=== PATIENT | female | born 1955 | race Caucasian/White ===

== ENCOUNTER → 2017-04-02 | Outpatient (CLI) | payer BC ==
--- NOTE | 2017-04-02 09:24 | CT ---
EXAMINATION TYPE: CT chest wo con DATE OF EXAM: 04/02/2017 COMPARISON: NONE HISTORY: Cough CT DLP: 470 mGycm. Automated Exposure Control for Dose Reduction was Utilized. TECHNIQUE: CT scan of the thorax is performed without IV contrast. FINDINGS: There is apical scarring present bilaterally. The lungs are otherwise clear. The major bron chi are patent. No significant axillary, internal mammary or hilar adenopathy. There are some shotty mediastinal and aortopulmonary window adenopathy. There is no pleural fluid. There is a small 5.7 mm pericardial effusion There is a 15.3 mm low attenuating lesion in the posterior segment of the right lobe of the liver. Th is does not meet the requirements of simple cyst. The remainder of the visualized upper abdomen is un remarkable. There is minimal hypertrophic spondylosis within the dorsal spine. IMPRESSION: 1. SMALL PERICARDIAL EFFUSION. 2. LOW ATTENUATING LESION WITHIN THE RIGHT LOBE OF THE LIVER DOES NOT MEET THE REQUIREMENTS OF SIMPLE CYST. HEPATIC ULTRASOUND WOULD BE SUGGESTED. 3. MINIMAL DEGENERATIVE CHANGE WITHIN THE SPINE.
== END | disposition home or self-care (01) ==
LOC: RADCTMAIN 08:25
PROVIDERS: ATTEND Family Medicine
DX: I31.3 Pericardial effusion (noninflammatory) (principal); R05 Cough
CPT/HCPCS: 71250

== ENCOUNTER → 2017-05-04 | Outpatient (CLI) | payer BC ==
--- NOTE | 2017-05-04 08:28 | US ---
EXAMINATION TYPE: US liver DATE OF EXAM: 05/04/2017 COMPARISON: CT scan of the chest dated 04/02/2017. CLINICAL HISTORY: K76.[address] Patient states CT showed possible liver cyst. NPO. EXAM MEASUREMENTS: Liver Length: 14.4 cm Gallbladder Wall: 0.2 cm CBD: 0.6 cm CHD: 0.6 cm Right Kidney: 11.2 x 5.7 x 4.6 cm Pancreas: Head and tail not well seen due to overlying bowel gas. Appears echogenic. Liver: Right posterior cystic lesion - 1.1 x 1.2 x 1.1 cm Gallbladder: wnl, fold seen Evidence for sonographic Zimmerman's sign: neg CBD: wnl CHD: wnl Right Kidney: medial anechoic lesion at hilum = 2.7 x 1.3 cm Limited views of the pancreas are unremarkable. The liver is normal in size without biliary dilatation. There is a 1.1 x 1.2 x 1.1 cm hypoechoic lesi on in the posterior segment of the right lobe of the liver. This does not meet the requirements of a simple cyst. The gallbladder is normal. The gallbladder wall measures 2 mm. The distal common hepatic duct measure s 6 mm. There is an extrarenal pelvis on the right. IMPRESSION: 1. HYPOECHOIC LESION WITHIN THE POSTERIOR SEGMENT RIGHT LOBE OF THE LIVER DOES NOT MEET THE REQUIREME NTS OF SIMPLE CYST. LIVER MRI WOULD BE SUGGESTED. 2. CYSTIC LESION IN THE MEDIAL ASPECT OF THE HILUM OF THE RIGHT KIDNEY REPRESENTS AN EXTRARENAL PELVI S.
== END | disposition home or self-care (01) ==
LOC: RADUSWWP 07:05
PROVIDERS: ATTEND Family Medicine
DX: K76.89 Other specified diseases of liver (principal)
CPT/HCPCS: 76705

== ENCOUNTER → 2017-12-10 | Outpatient (CLI) | payer BC ==
--- NOTE | 2017-12-11 16:12 | MR ---
EXAMINATION TYPE: MR liver wo/w con DATE OF EXAM: 12/10/2017 COMPARISON: Ultrasound liver May 04, 2017. CT chest April 02, 2017. HISTORY: Abnormal U/S, Liver mass CONTRAST: Standard multiplanar, multisequence MRI departmental protocol utilizing 9 mL intravenous Gadavist nancy olinium contrast. FINDINGS: Liver: Liver is normal in size. Corresponding to area of concern on ultrasound posterior aspect right hepatic dome there is oval well-circumscribed 1.3 x 0.9 cm lesion of T1 hypointensity and T2 hyperin tensity without postcontrast enhancement consistent with simple appearing thin-walled cyst. There are 4 additional subcentimeter simple appearing cysts suspected right hepatic lobe seen best series 601 images 25, 24, 22, and 19. No worrisome solid or cystic mass is identified. No ductal dilatation is seen. Gallbladder is unremarkable. Other: Visualized lung bases are clear. The spleen, pancreas, and both adrenal glands are normal in size and felt unremarkable. There are a few scattered simple-appearing cysts seen throughout both kid neys. No hydronephrosis is evident bilaterally. There is no suspicious bowel dilatation. There is no concerning abdominal fluid collection or adenopathy. IMPRESSION: Several thin-walled simple appearing small cysts throughout the liver. No worrisome intrahepatic mass identified.
== END | disposition home or self-care (01) ==
LOC: RADMRIMAIN 06:00
PROVIDERS: ATTEND Surgery
DX: K76.89 Other specified diseases of liver (principal)
CPT/HCPCS: 82565; 74183; 36415; A9581

== ENCOUNTER → 2018-09-01 | Outpatient (CLI) | payer BC ==
--- NOTE | 2018-09-02 14:36 | MM ---
Reason for exam: screening (asymptomatic). Last mammogram was performed 1 year and 1 month ago. History: Patient is postmenopausal. Benign excisional biopsy of the left breast, January 2010. Benign US left guided VAD of the left breast, December 23, 2009. Physical Findings: A clinical breast exam by your physician is recommended on an annual basis and results should be correlated with mammographic findings. MG 3D Screening Mammo W/Cad Bilateral CC and MLO view(s) were taken. Prior study comparison: August 09, 2017, bilateral MG screening mammo w CAD. August 07, 2016, bilateral MG 3d screening mammo w/cad. The breast tissue is heterogeneously dense. This may lower the sensitivity of mammography. There are benign appearing round calcifications bilaterally. There is no discrete abnormality. ASSESSMENT: Benign, BI-RAD 2 RECOMMENDATION: Routine screening mammogram of both breasts in 1 year.
== END ==
LOC: RADMAMWWP 09:31
PROVIDERS: ATTEND Family Medicine
DX: Z12.31 Encounter for screening mammogram for malignant neoplasm of breast (principal)
CPT/HCPCS: 77063; 77067

== ENCOUNTER → 2019-09-22 | Outpatient (CLI) | payer BC ==
--- NOTE | 2019-09-25 09:44 | MM ---
Reason for exam: screening (asymptomatic). Last mammogram was performed 1 year and 1 month ago. History: Patient is postmenopausal. Benign excisional biopsy of the left breast, January 2010. Benign US left guided VAD of the left breast, December 23, 2009. Physical Findings: A clinical breast exam by your physician is recommended on an annual basis and results should be correlated with mammographic findings. MG 3D Screening Mammo W/Cad Bilateral CC and MLO view(s) were taken. Prior study comparison: September 01, 2018, bilateral MG 3d screening mammo w/cad. August 09, 2017, bilateral MG screening mammo w CAD. There are scattered fibroglandular densities. There is no discrete abnormality. No significant changes when compared with prior studies. ASSESSMENT: Negative, BI-RAD 1 RECOMMENDATION: Routine screening mammogram of both breasts in 1 year.
== END | disposition home or self-care (01) ==
LOC: RADMAMWWP 07:38
PROVIDERS: ATTEND Family Medicine
DX: Z12.31 Encounter for screening mammogram for malignant neoplasm of breast (principal)
CPT/HCPCS: 77063; 77067

== ENCOUNTER 2022-06-20 18:11 | Emergency (ER) | payer MEDICARE ==
--- NOTE | 2022-06-20 18:24 | ED ---
Alcohol HPI - General Stated Complaint: ETOH Time Seen by Provider: 06/20/22 18:11 Source: patient, EMS, RN notes reviewed, old records reviewed Mode of arrival: EMS - History of Present Illness Initial Comments: 67-year-old female brought in by EMS for evaluation of alcohol intoxication patient to [facility] which was nauseated concern for aspiration by paramedics. Currently she be going through issues at home her daughter apparently will not let her see the granddaughter anymore. Unclear how long the patient's been using alcohol. No reports of any trauma or pain. Patient denies any pain no cough MD Complaint: alcohol intoxication - Related Data Allergies Allergy/AdvReac Type Severity Reaction Status Date / Time No Known Allergies Allergy Verified 06/20/22 18:30 Review of Systems ROS Statement: Those systems with pertinent positive or pertinent negative responses have been documented in the HPI. ROS Other: All systems not noted in ROS Statement are negative. General Exam - General Exam Comments Initial Comments: This a well-developed well-nourished awake lethargic female with assault alcohol conjoiners on her breath and she does appear intoxicated General appearance: alert, lethargic Head exam: Present: atraumatic, normocephalic, normal inspection Eye exam: Present: normal appearance, PERRL, EOMI. Absent: scleral icterus, conjunctival injection, periorbital swelling ENT exam: Present: normal exam, mucous membranes moist Neck exam: Present: normal inspection. Absent: tenderness, meningismus, lymphadenopathy Respiratory exam: Present: normal lung sounds bilaterally. Absent: respiratory distress, wheezes, rales, rhonchi, stridor Cardiovascular Exam: Present: regular rate, normal rhythm, normal heart sounds. Absent: systolic murmur, diastolic murmur, rubs, gallop, clicks GI/Abdominal exam: Present: soft, normal bowel sounds. Absent: distended, tenderness, guarding, rebound, rigid Extremities exam: Present: normal inspection, full ROM, normal capillary refill. Absent: tenderness, pedal edema, joint swelling, calf tenderness Back exam: Present: normal inspection Neurological exam: Present: alert, oriented X3, CN II-XII intact Psychiatric exam: Present: normal affect, normal mood Skin exam: Present: warm, dry, intact, normal color. Absent: rash Course Vital Signs 06/20/22 06/20/22 18:27 19:45 Temperature 97.8 F Pulse Rate 65 72 Respiratory 16 16 Rate Blood Pressure 127/63 106/40 O2 Sat by Pulse 98 96 Oximetry - Reevaluation(s) Reevaluation #1: 06/20/22 19:14 I did discuss the presentation with the patient's was present patient does have a history of drinking since June of last year. Medical Decision Making - Medical Decision Making I did discuss [employer] the patient's also with Dr. Baltazar covering Dr. Bauman. Patient be admitted for inpatient evaluation and treatment of alcohol intoxication potential for withdrawal dehydration and hypokalemia. Per the patient's she apparently does not drink every day but again has been drinking more so since June of this past year. - Lab Data Result diagrams: 06/20/22 18:28 06/20/22 18:28 Lab Results 06/20/22 06/20/22 06/20/22 Range/Units 18:28 18:28 18:28 WBC 6.2 (3.8-10.6) k/uL RBC 4.59 (3.80-5.40) m/uL Hgb 14.2 (11.4-16.0) gm/dL Hct 42.6 (34.0-46.0) % MCV 93.0 (80.0-100.0) fL MCH 31.0 (25.0-35.0) pg MCHC 33.4 (31.0-37.0) g/dL RDW 12.1 (11.5-15.5) % Plt Count 260 (150-450) k/uL MPV 8.4 Neutrophils % 53 % Lymphocytes % 38 % Monocytes % 4 % Eosinophils % 2 % Basophils % 1 % Neutrophils # 3.3 (1.3-7.7) k/uL Lymphocytes # 2.4 (1.0-4.8) k/uL Monocytes # 0.2 (0-1.0) k/uL Eosinophils # 0.1 (0-0.7) k/uL Basophils # 0.0 (0-0.2) k/uL Sodium 144 (137-145) mmol/L Potassium 3.2 L (3.5-5.1) mmol/L Chloride 108 H (98-107) mmol/L Carbon Dioxide 24 (22-30) mmol/L Anion Gap 12 mmol/L BUN 8 (7-17) mg/dL Creatinine 0.53 (0.52-1.04) mg/dL Est GFR (CKD-EPI)AfAm >90 (>60 ml/min/1.73 sqM) Est GFR (CKD-EPI)NonAf >90 (>60 ml/min/1.73 sqM) Glucose 117 H (74-99) mg/dL Osmolality 350 H* (280-301) mosm/kg Plasma Lactic Acid Montrell 1.9 (0.7-2.0) mmol/L Calcium 9.4 (8.4-10.2) mg/dL Magnesium 2.0 (1.6-2.3) mg/dL Total Bilirubin 0.3 (0.2-1.3) mg/dL AST 26 (14-36) U/L ALT 20 (4-34) U/L Alkaline Phosphatase 79 (38-126) U/L Ammonia 16 (<30) umol/L Creatine Kinase 44 (30-135) U/L Troponin I (0.000-0.034) ng/mL Total Protein 6.7 (6.3-8.2) g/dL Albumin 4.1 (3.5-5.0) g/dL Acetaminophen <10.0 ug/mL Serum Alcohol 202 H* mg/dL 06/20/22 Range/Units 18:28 WBC (3.8-10.6) k/uL RBC (3.80-5.40) m/uL Hgb (11.4-16.0) gm/dL Hct (34.0-46.0) % MCV (80.0-100.0) fL MCH (25.0-35.0) pg MCHC (31.0-37.0) g/dL RDW (11.5-15.5) % Plt Count (150-450) k/uL MPV Neutrophils % % Lymphocytes % % Monocytes % % Eosinophils % % Basophils % % Neutrophils # (1.3-7.7) k/uL Lymphocytes # (1.0-4.8) k/uL Monocytes # (0-1.0) k/uL Eosinophils # (0-0.7) k/uL Basophils # (0-0.2) k/uL Sodium (137-145) mmol/L Potassium (3.5-5.1) mmol/L Chloride (98-107) mmol/L Carbon Dioxide (22-30) mmol/L Anion Gap mmol/L BUN (7-17) mg/dL Creatinine (0.52-1.04) mg/dL Est GFR (CKD-EPI)AfAm (>60 ml/min/1.73 sqM) Est GFR (CKD-EPI)NonAf (>60 ml/min/1.73 sqM) Glucose (74-99) mg/dL Osmolality (280-301) mosm/kg Plasma Lactic Acid Montrell (0.7-2.0) mmol/L Calcium (8.4-10.2) mg/dL Magnesium (1.6-2.3) mg/dL Total Bilirubin (0.2-1.3) mg/dL AST (14-36) U/L ALT (4-34) U/L Alkaline Phosphatase (38-126) U/L Ammonia (<30) umol/L Creatine Kinase (30-135) U/L Troponin I <0.012 (0.000-0.034) ng/mL Total Protein (6.3-8.2) g/dL Albumin (3.5-5.0) g/dL Acetaminophen ug/mL Serum Alcohol mg/dL - Radiology Data Radiology results: report reviewed (Imaging reviewed as well as report no acute processes seen at this time. No evidence of aspiration.), image reviewed Disposition Clinical Impression: Alcoholic intoxication, Alcohol withdrawal syndrome, Hypokalemia, Nausea & vomiting, Dehydration Disposition: ADMITTED IP TO THIS [facility] Condition: Fair Referrals: Nicolas Bauman MD [Primary Care Provider] - 1-2 days Decision Date: 06/20/22 Decision Time: 20:00
[2022-06-20] MEDS ORDERED: SODIUM CHLORIDE 0.9% 1,000 ML IV STA (18:26)
[2022-06-20 18:29] VITALS: RESP 16; TEMP 97.8
[2022-06-20 18:39] LABS: Basophils % (A) 1 %; Eosinophils # (A) 0.1 k/uL (0-0.7); Eosinophils % (A) 2 %; HCT 42.6 % (34.0-46.0); HGB 14.2 gm/dL (11.4-16.0); Lymphocytes # (A) 2.4 k/uL (1.0-4.8); Lymphocytes % (A) 38 %; MCHC 33.4 g/dL (31.0-37.0); Mean Platelet Volume 8.4; Monocytes # (A) 0.2 k/uL (0-1.0); Monocytes % (A) 4 %; Neutrophils # (A) 3.3 k/uL (1.3-7.7); Neutrophils % (A) 53 %; Platelet Count 260 k/uL (150-450); RBC 4.59 m/uL (3.80-5.40); RDW 12.1 % (11.5-15.5); WBC 6.2 k/uL (3.8-10.6)
[2022-06-20] MEDS ORDERED: ONDANSETRON 4 MG/2 ML VIAL IVP STA (18:40)
[2022-06-20 18:47] LABS: Lactic Acid, Venous 1.9 mmol/L (0.7-2.0)
[2022-06-20 18:52] LABS: ALT 20 U/L (4-34); AST 26 U/L (14-36); Acetaminophen <10.0 ug/mL; African American GFR (CKD) >90 (>60 ml/min/1.73 sqM); Albumin 4.1 g/dL (3.5-5.0); Alkaline Phosphatase 79 U/L (38-126); Anion Gap 12 mmol/L; Blood Urea Nitrogen 8 mg/dL (7-17); Calcium 9.4 mg/dL (8.4-10.2); Carbon Dioxide 24 mmol/L (22-30); Chloride 108 mmol/L (98-107); Creatine Kinase 44 U/L (30-135); Glucose 117 mg/dL (74-99); Non-African American GFR(CKD) >90 (>60 ml/min/1.73 sqM); Potassium 3.2 mmol/L (3.5-5.1); Sodium 144 mmol/L (137-145); Total Bilirubin 0.3 mg/dL (0.2-1.3); Total Protein 6.7 g/dL (6.3-8.2)
[2022-06-20 19:22] LABS: Alcohol 202 mg/dL
--- NOTE | 2022-06-20 19:44 | XR ---
EXAMINATION TYPE: XR chest 1V portable DATE OF EXAM: 06/20/2022 6:39 PM COMPARISON: CT chest from 04/02/2017 TECHNIQUE: XR chest 1V portable . CLINICAL INDICATION:Female, 67 years old with history of Concern for aspiration; Patient is rotated. FINDINGS: Lungs/Pleura: There is no evidence of pleural effusion, focal consolidation, or pneumothorax. Pulmonary vascularity: Unremarkable. Heart/mediastinum: Cardiomediastinal silhouette is prominent in size. Musculoskeletal: No acute osseous pathology. IMPRESSION: No acute cardiopulmonary disease/process.
[2022-06-20 19:47] VITALS: BP 106/40; PULSE 72
[2022-06-20] MEDS ORDERED: POTASSIUM CHLORIDE 20 MEQ in WATER FOR INJECTION 1 100ML.BAG IVPB STA (20:21)
[2022-06-20] MEDS ORDERED: NALOXONE 0.4 MG/ML 1 ML VIAL IV PRN (20:22)
[2022-06-20] MEDS ORDERED: DEXTROSE 5%-0.45% NACL 1,000 ML IV SCH (20:30)
[2022-06-20] MEDS ORDERED: ONDANSETRON 4 MG/2 ML VIAL IVP PRN (20:30)
[2022-06-20] MEDS ORDERED: THIAMINE 100 MG/ML 2 ML VIAL IM STA (20:31)
[2022-06-20] MEDS ORDERED: LORazepam 2 MG/ML INJ IV PRN (20:31)
[2022-06-21] MEDS ORDERED: THIAMINE 100 MG TAB PO SCH (09:00)
[2022-06-21] MEDS ORDERED: PANTOPRAZOLE 40 MG/10 ML VIAL IV SCH (09:00)
== END 2022-06-20 21:21 | disposition left against medical advice (07) ==
LOC: EC 18:11 → 4SSUR 20:22 → UNDOADMIN 20:22 → 4SSUR 20:58 → EC 21:21
DX: E87.6 Hypokalemia (principal); E86.0 Dehydration; F10.139 Alcohol abuse with withdrawal, unspecified; Y90.7 Blood alcohol level of 200-239 mg/100 ml
CPT/HCPCS: 96374; 96361; 99284; 36415; 83930; 80053; 82140; 82550; 83605; 83735; 84484; 85025; 80143; 71045; G0480; J2405; 80320

== ENCOUNTER 2022-09-16 08:27 | Day surgery (SDC) | payer MEDICARE ==
[2022-09-14 09:59] VITALS: BMI 23.1
[~2022-09-16 08:27] MED LIST: LACTATED RINGERS 1,000 ML IV SCH; LIDOCAINE 1% (10MG/ML) FOR IV START INTRADERMA PRN
[2022-09-16 09:22] VITALS: TEMP 97.7
[2022-09-16] MEDS ORDERED: PROPOFOL 10 MG/ML 20 ML VIAL IV ONE (09:36)
--- NOTE | 2022-09-16 10:02 | P.PCN ---
Date of Procedure: 09/16/22 Procedure(s) Performed: BRIEF HISTORY: Patient is a 67-year-old pleasant female scheduled for an elective colonoscopy as a part of screening for colon cance/positive cologuardr. PROCEDURE PERFORMED: Colonoscopy with biopsy. PREOPERATIVE DIAGNOSIS: Screening for colon cancer/positive cologuard. IV sedation per Anesthesia. PROCEDURE: After informed consent was obtained, the patient, was brought into the endoscopy unit. IV sedation was administered by Anesthesia under continuous monitoring. Digital rectal examination was normal. Initially the Olympus CF-160 flexible video colonoscope was then inserted in the rectum, gradually advanced into the cecum without any difficulty. Careful examination was performed as the scope was gradually being withdrawn. Ileocecal valve and the appendiceal orifice were visualized and appeared normal. Prep was excellent. Mucosa of the cecum, ascending colon, transverse colon, descending colon, appeared normal. In the sigmoid colon there was a 2 mm sessile polyp removed by cold biopsy. Rest of the sigmoid colon, and rectum appeared normal. Retroflexion was performed in the rectum and no lesions were seen. The patient tolerated the procedure well. IMPRESSION: 3 mm sessile sigmoid colon polyp status post cold biopsy Rest of the colon appeared normal RECOMMENDATIONS: Findings of this examination were discussed with the patient as well as her family.. She was advised to follow with the biopsy results and have a repeat colonoscopy in 5 years based the biopsy results
[2022-09-16 10:13] VITALS: PULSE 71
[2022-09-16 10:26] VITALS: BP 142/76; RESP 20
== END 2022-09-16 10:42 | disposition home or self-care (01) ==
LOC: ORWHC2ENDO 08:27
PROVIDERS: ATTEND Internal Medicine Gastroenterology
DX: D12.5 Benign neoplasm of sigmoid colon (principal); E03.9 Hypothyroidism, unspecified; Z79.890 Hormone replacement therapy; F90.9 Attention-deficit hyperactivity disorder, unspecified type; Z79.01 Long term (current) use of anticoagulants; Z79.83 Long term (current) use of bisphosphonates; Z79.899 Other long term (current) drug therapy
CPT/HCPCS: 88305; 45380; J2704

== ENCOUNTER → 2023-01-29 | Outpatient (CLI) | payer MEDICARE ==
[2023-01-29 07:48] LABS: African American GFR (CKD) >90 (>60 ml/min/1.73 sqM); Blood Urea Nitrogen 16 mg/dL (7-17); Non-African American GFR(CKD) >90 (>60 ml/min/1.73 sqM)
--- NOTE | 2023-01-29 09:20 | CT ---
EXAMINATION TYPE: CT chest w con DATE OF EXAM: 01/29/2023 COMPARISON: 04/02/2017 HISTORY: 67 year-old female S22.20XD, Sternal fracture after injury. TECHNIQUE: Contiguous axial scanning of the chest after the administration of 100ml mL of Isovue 300. Coronal/sagittal reconstructions performed. CT DLP: 200.3mGycm. Automatic exposure control utilized for a dose reduction. FINDINGS: Heart borderline enlarged without pericardial effusion. Unclear if there are proximal LAD coronary ar beto aneurysms measuring up to 1.5 cm versus enhancing nodularity relating to low hanging left atrial appendage. Refer to axial image 35. Borderline ectatic ascending aorta 3.5 cm. Conventional arch vessel branching anatomy. No thoracic ly mphadenopathy by CT size criteria. Biapical pleural-parenchymal scarring. Stable 4 mm left apical pulmonary nodule. Mild dependent atelectasis is present. Additional strandy b ibasilar atelectasis. Some groundglass changes in the lower lungs, probably due to atelectasis as wel l. Visualized upper abdomen shows a stable 1.3 cm cyst posterior right liver lobe. Bones: Accentuated midthoracic kyphosis. T12 superior endplate deformity is new from 2016 but still a ge indeterminant, possibly subacute given some questionable mild paravertebral soft tissue thickening here. No retropulsion into the ventral spinal canal. There is a transverse fracture across the upper sternal body with anterior cortical buckling. Associa stefan presternal soft tissue swelling. No underlying mediastinal hematoma is seen. IMPRESSION: 1. Unclear if there are proximal LAD coronary artery aneurysms measuring up to 1.5 cm versus enhancem ent within a low hanging left atrial appendage (axial image 35). Consider further cardiology evaluati on. 2. Transverse fracture across the upper sternal body with anterior cortical buckling. Associated mild presternal soft tissue swelling. No underlying mediastinal hematoma or acute aortic injury is seen. 3. Superior endplate fracture of T12 is new from 2017 but still age indeterminate. Possibly subacute given some questionable mild paravertebral soft tissue thickening. Correlate for any focal pain. No r etropulsion into the spinal canal.
== END | disposition home or self-care (01) ==
LOC: RADCTMAIN 06:42
PROVIDERS: ATTEND Family Medicine
DX: S22.20XD Unspecified fracture of sternum, subsequent encounter for fracture with routine healing (principal)
CPT/HCPCS: 82565; 84520; 71260; 36415; Q9967

== ENCOUNTER 2023-04-23 09:08 | Inpatient (IN) | payer MEDICARE ==
[2023-04-23] MEDS ORDERED: HYDROmorphone 1 MG/ML 1 ML SYRINGE IM STA (09:21)
--- NOTE | 2023-04-23 09:23 | ED ---
Fall HPI - General Chief Complaint: Fall Stated Complaint: FALL, R Side pain Time Seen by Provider: 04/23/23 09:16 Source: patient, family, RN notes reviewed Mode of arrival: wheelchair Limitations: physical limitation - History of Present Illness Initial Comments: 68-year-old female sent presents to the emergency Department chief complaint of trip and fall. She states she missed last step falling onto her right side. Patient complains of right groin, hip pain. Denies any head injury no loss conscious. Patient noted to have a small abrasion to her right ankle but denies any associated pain. - Related Data Home Medications Medication Instructions Recorded Confirmed Dextroamphetamine/Amphetamine 20 mg PO BID 09/14/22 04/23/23 [Adderall] HYDROcodone/APAP 7.5-325MG [[place] 1 tab PO Q6HR PRN 09/14/22 04/23/23 7.5-325] Levothyroxine Sodium [Synthroid] 75 mcg PO DAILY 09/14/22 04/23/23 ALPRAZolam [Xanax] 0.5 mg PO TID PRN 04/23/23 04/23/23 Fluoride (Sodium) [Sodium Fluoride 1 applic DENTAL DAILY 04/23/23 04/23/23 5000 Plus] Allergies Allergy/AdvReac Type Severity Reaction Status Date / Time No Known Allergies Allergy Verified 04/23/23 10:43 Review of Systems ROS Statement: Those systems with pertinent positive or pertinent negative responses have been documented in the HPI. ROS Other: All systems not noted in ROS Statement are negative. Past Medical History Past Medical History: Osteoarthritis (OA), Thyroid Disorder History of Any Multi-Drug Resistant Organisms: None Reported Past Surgical History: Breast Surgery Additional Past Surgical History / Comment(s): BREAST BIOPSY Past Anesthesia/Blood Transfusion Reactions: No Reported Reaction Past Psychological History: ADD/ADHD, Anxiety Smoking Status: Never smoker Past Alcohol Use History: Occasional Past Drug Use History: Marijuana - Past Family History Mother Family Medical History: Cancer General Exam Limitations: no limitations General appearance: alert, in no apparent distress Head exam: Present: atraumatic, normocephalic, normal inspection Respiratory exam: Present: normal lung sounds bilaterally. Absent: respiratory distress, wheezes, rales, rhonchi, stridor Cardiovascular Exam: Present: regular rate, normal rhythm, normal heart sounds. Absent: systolic murmur, diastolic murmur, rubs, gallop, clicks Extremities exam: Present: other (Right hip mild tenderness, pain with logrolling, no shortening rotation neurovascular intact small abrasion right ankle) Course Vital Signs 04/23/23 04/23/23 04/23/23 09:09 10:48 11:29 Temperature 99 F 98.1 F 98.8 F Pulse Rate 72 68 66 Respiratory 18 16 16 Rate Blood Pressure 137/66 119/64 122/67 O2 Sat by Pulse 97 97 97 Oximetry 04/23/23 11:48 Temperature 97.7 F Pulse Rate 62 Respiratory 18 Rate Blood Pressure 118/71 O2 Sat by Pulse 94 L Oximetry Medical Decision Making - Medical Decision Making Was pt. sent in by a medical professional or institution (, PA, BOILER SHOP SUPERVISOR, urgent care, hospital, or long term...) When possible be specific @ -[No] Did you speak to anyone other than the patient for history (EMS, parent, family, police, friend...)? What history was obtained from this source @ -[No] Did you review nursing and triage notes (agree or disagree)? Why? @ -[I reviewed and agree with nursing and triage notes] Were old charts reviewed (outside hosp., previous admission, EMS record, old EKG, old radiological studies, urgent care reports/EKG's, long term records)? Report findings @ -[No old charts were reviewed] Differential Diagnosis (chest pain, altered mental status, abdominal pain women, abdominal pain men, vaginal bleeding, weakness, fever, dyspnea, syncope, headache, dizziness, GI bleed, back pain, seizure, CVA, palpatations, mental health, musculoskeletal)? @ -[Fall, hip contusion, hip fracture] EKG interpreted by me (3pts min.). @ -[As above] X-rays interpreted by me (1pt min.). @ -[X-ray right hip with AP pelvis shows impacted femoral neck fracture] CT interpreted by me (1pt min.). @ -[None done] U/S interpreted by me (1pt. min.). @ -[None done] What testing was considered but not performed or refused? (CT, X-rays, U/S, labs)? Why? @ -[None] What meds were considered but not given or refused? Why? @ -[None] Did you discuss the management of the patient with other professionals (professionals i.e. , PA, BOILER SHOP SUPERVISOR, lab, RT, psych nurse, social service agency director, wastewater plant operator, teacher, artillery officer, insurance case manager)? Give summary @ -[Swati with orthopedics associate for admission for right hip fracture] Was smoking cessation discussed for >3mins.? @ -[No] Was critical care preformed (if so, how long)? @ -[No] Were there social determinants of health that impacted care today? How? (Homelessness, low income, unemployed, alcoholism, drug addiction, transportation, low edu. Level, literacy, decrease access to med. care, group home, rehab)? @ -[No] Was there de-escalation of care discussed even if they declined (Discuss DNR or withdrawal of care, Hospice)? DNR status @ -[No] What co-morbidities impacted this encounter? (DM, HTN, Smoking, COPD, CAD, Cancer, CVA, ARF, Chemo, Hep., AIDS, mental health diagnosis, sleep apnea, morbid obesity)? @ -[None] Was patient admitted / discharged? Hospital course, mention meds given and route, prescriptions, significant lab abnormalities, going to OR and other pertinent info. @ -[Admitted patient is admitted to orthopedics for surgical intervention a right hip fracture] Undiagnosed new problem with uncertain prognosis? @ -[No] Drug Therapy requiring intensive monitoring for toxicity (Heparin, Nitro, Insulin, Cardizem)? @ -[No] Were any procedures done? @ -[No] Diagnosis/symptom? @ -[Fall, right hip fracture] Acute, or Chronic, or Acute on Chronic? @ -[Acute] Uncomplicated (without systemic symptoms) or Complicated (systemic symptoms)? @ -[Uncomplicated] Side effects of treatment? @ -[No] Exacerbation, Progression, or Severe Exacerbation? @ -[No] Poses a threat to life or bodily function? How? (Chest pain, USA, CT, pneumonia, PE, COPD, DKA, ARF, appy, cholecystitis, CVA, Diverticulitis, Homicidal, Suicidal, threat to staff... and all critical care pts) @ -[No] - Lab Data Result diagrams: 04/23/23 10:38 04/23/23 10:38 - EKG Data -: EKG Interpreted by Me EKG Comments: EKG performed at 10:31 sinus rhythm with rate of 64. PR175 QRS 86 QT/ QTC 372/381 Disposition Clinical Impression: Fall, Fracture of femoral neck, right Disposition: ADMITTED IP TO THIS HOSP Condition: Fair Time of Disposition: 10:06
--- NOTE | 2023-04-23 09:55 | XR ---
EXAMINATION TYPE: XR Hip RT and AP Pelvis DATE OF EXAM: 04/23/2023 CLINICAL HISTORY: pain TECHNIQUE: AP and frogleg views of the right hip are obtained. COMPARISON: None. FINDINGS: There is an impacted right femoral neck fracture. No additional fracture seen. The joint sp ayaz appears within normal limits. The overlying soft tissue appears unremarkable. IMPRESSION: 1. There is an impacted right femoral neck fracture.
[2023-04-23] MEDS ORDERED: ONDANSETRON 4 MG/2 ML VIAL IVP PRN (10:06)
[2023-04-23] MEDS ORDERED: NALOXONE 0.4 MG/ML 1 ML VIAL IV PRN (10:06)
[2023-04-23 10:45] LABS: Basophils % (A) 0 %; Eosinophils # (A) 0.1 k/uL (0-0.7); Eosinophils % (A) 2 %; HCT 39.7 % (34.0-46.0); HGB 13.5 gm/dL (11.4-16.0); Lymphocytes # (A) 1.6 k/uL (1.0-4.8); Lymphocytes % (A) 25 %; MCH 31.4 pg (25.0-35.0); MCV 92.2 fL (80.0-100.0); Mean Platelet Volume 7.6; Monocytes # (A) 0.6 k/uL (0-1.0); Monocytes % (A) 9 %; Neutrophils # (A) 4.1 k/uL (1.3-7.7); Neutrophils % (A) 63 %; Platelet Count 205 k/uL (150-450); RDW 12.5 % (11.5-15.5); WBC 6.5 k/uL (3.8-10.6)
--- NOTE | 2023-04-23 10:52 | XR ---
EXAMINATION TYPE: XR chest 1V DATE OF EXAM: 04/23/2023 HISTORY: Shortness of breath. COMPARISON: 06/20/2022 TECHNIQUE: Single view of the chest is submitted. FINDINGS: Demonstrated are scattered senescent parenchymal change. There is no evidence for focal infiltrate. The heart is stable. Hilar and mediastinal structures are within normal limits. Degenerative changes are seen of the dorsal spine. IMPRESSION: 1. Chronic changes without evidence for acute pulmonary disease.
[2023-04-23 10:54] LABS: ALT 20 U/L (4-34); AST 25 U/L (14-36); African American GFR (CKD) >90 (>60 ml/min/1.73 sqM); Albumin 3.6 g/dL (3.5-5.0); Alkaline Phosphatase 113 U/L (38-126); Anion Gap 4 mmol/L; Blood Urea Nitrogen 6 mg/dL (7-17); Calcium 9.2 mg/dL (8.4-10.2); Carbon Dioxide 26 mmol/L (22-30); Chloride 106 mmol/L (98-107); Glucose 99 mg/dL (74-99); Non-African American GFR(CKD) >90 (>60 ml/min/1.73 sqM); Potassium 3.7 mmol/L (3.5-5.1); Sodium 136 mmol/L (137-145); Total Bilirubin 1.3 mg/dL (0.2-1.3); Total Protein 6.5 g/dL (6.3-8.2)
[2023-04-23 11:00] LABS: INR 0.9 (<1.2); Partial Thromboplastin Time 23.9 sec (22.0-30.0); Prothrombin Time 9.8 sec (9.0-12.0)
[2023-04-23] MEDS ORDERED: HYDROmorphone 0.5 MG/0.5 ML SYRINGE IVP STA (11:24)
--- NOTE | 2023-04-23 13:28 | P.HPOR ---
History of Present Illness H&P Date: 04/23/23 This is a 68-year-old female who is admitted for right hip fracture. Patient's past medical history is significant for thyroid disease. Patient states that she fell in her basement on 04/22/2023 and landed directly onto the right hip. Patient states that she was able to get up and walk after her injury, but by the morning had to crawl to the bathroom because of groin pain. Patient states that she presented to the emergency room and x-rays revealed right hip fracture. Patient states that her pain is well controlled. Patient states that she lives at home with her . Patient denies any head injury or loss of consciousness. Patient denies any fever/chills, numbness, weakness, tingling, abdominal pain, shortness of breath or chest pain. Review of Systems See HPI. Past Medical History Past Medical History: Osteoarthritis (OA), Thyroid Disorder History of Any Multi-Drug Resistant Organisms: None Reported Past Surgical History: Breast Surgery Additional Past Surgical History / Comment(s): BREAST BIOPSY Past Anesthesia/Blood Transfusion Reactions: No Reported Reaction Past Psychological History: ADD/ADHD, Anxiety Smoking Status: Never smoker Past Alcohol Use History: Occasional Past Drug Use History: Marijuana - Past Family History Mother Family Medical History: Cancer Medications and Allergies Home Medications Medication Instructions Recorded Confirmed Type Dextroamphetamine/Amphetamine 20 mg PO BID 09/14/22 04/23/23 History [Adderall] HYDROcodone/APAP 7.5-325MG [[place] 1 tab PO Q6HR PRN 09/14/22 04/23/23 History 7.5-325] Levothyroxine Sodium [Synthroid] 75 mcg PO DAILY 09/14/22 04/23/23 History ALPRAZolam [Xanax] 0.5 mg PO TID PRN 04/23/23 04/23/23 History Fluoride (Sodium) [Sodium Fluoride 1 applic DENTAL DAILY 04/23/23 04/23/23 History 5000 Plus] Allergies Allergy/AdvReac Type Severity Reaction Status Date / Time No Known Allergies Allergy Verified 04/23/23 10:43 Physical Examination On exam patient is resting comfortably in bed in no acute distress. Patient is alert and oriented 3. Patient does have pain in the groin with range of motion of the right hip. There is minimal swelling and skin is intact over the right hip. Calves are soft and nontender to palpation bilaterally. Sensation intact bilaterally. Neurovascular status and circulatory status are intact to bilateral upper and lower extremities. Exams of the head, neck, bilateral upper extremities and left lower extremity are within normal limits. Results X-rays of the right hip reveal a nondisplaced femoral neck fracture. - Labs Labs: Abnormal Lab Results - Last 24 Hours (Table) 04/23/23 Range/Units 10:38 Sodium 136 L (137-145) mmol/L BUN 6 L (7-17) mg/dL H & H 04/23/23 Range/Units 10:38 Hgb 13.5 (11.4-16.0) gm/dL Hct 39.7 (34.0-46.0) % Coagulation 04/23/23 Range/Units 10:38 INR 0.9 (<1.2) Result Diagrams: 04/23/23 10:38 04/23/23 10:38 Assessment and Plan (1) Fall Current Visit: Yes Status: Acute Code(s): W19.XXXA - UNSPECIFIED FALL, INITIAL ENCOUNTER SNOMED Code(s): 0009239 (2) Fracture of femoral neck, right Current Visit: Yes Status: Acute Code(s): S72.001A - FRACTURE OF UNSP PART OF NECK OF RIGHT FEMUR, INIT SNOMED Code(s): 6797700 Plan: 1. Patient is to be NPO after midnight. 2. Appreciate input from internal medicine. 3. Planning for percutaneous pinning of the right hip on 04/24/[address] Zimmerman pending medical clearance and patient consent.
[2023-04-23] MEDS: HYDROmorphone 0.5 MG/0.5 ML SYRINGE IVP PRN ×3 (14:00→20:36)
[2023-04-23 14:06] LABS: Amorphous Sediment,Urine Rare /hpf; Appearance,Urine Clear (Clear); Bacteria,Urine Occasional /hpf; Bilirubin,Urine Negative (Negative); Blood,Urine Small (Negative); Color,Urine Yellow; Glucose,Urine (UA) Negative (Negative); Ketones,Urine Negative (Negative); Leukocyte Esterase,Urine Large (Negative); Mucus,Urine Rare /hpf; Nitrite,Urine Positive (Negative); PH, Urine 6.5 (5.0-8.0); Protein,Urine Negative (Negative); RBC,Urine 5 /hpf (0-5); Specific Gravity,Urine 1.007 (1.001-1.035); Squamous Epithelial Cell,Urine 2 /hpf (0-4); Urobilinogen,Urine <2.0 mg/dL (<2.0); WBC,Urine 21 /hpf (0-5)
[2023-04-23] MEDS ORDERED: HYDROcodone/APAP 7.5-325MG 1 EACH TAB PO PRN (16:13)
[2023-04-23] MEDS: NON FORMULARY DRUG (Dextroamphetamine/Amphetamine [Adderall] 20 MG Tablet) PO SCH (21:57)
[2023-04-23] MEDS: ALPRAZolam 0.5 MG TAB PO PRN (21:58)
[2023-04-24] MEDS: LEVOTHYROXINE 75 MCG TAB PO SCH (06:27)
[2023-04-24] MEDS: HYDROmorphone 0.5 MG/0.5 ML SYRINGE IVP PRN ×3 (06:28→15:13)
--- NOTE | 2023-04-24 06:50 | CONS ---
CONSULTATION A 68-year-old white female, twisting her leg under her. She was found to have a fracture surgery tomorrow. Home medicines have been restarted. Her home medications include Synthroid 75 mcg daily, [place] 7.5 q.6., 10 daily, Adderall 20 b.i.d., Xanax 0.5 t.i.d. CONDITION: Stable. PROGNOSIS: Guarded. ACTIVITY: Ambulate as tolerated. OBJECTIVE: HEMATOLOGY: Negative Homans. PSYCHIATRIC: Fair mood and effect. VITAL SIGNS: O2 is 96% on room air, blood pressure 111/58, temperature 99.7, respiratory rate 16 to 18. CARDIOVASCULAR: S1, S2. LUNGS: Clear. GI: Soft. MUSCULOSKELETAL: Her right leg, she is unable to move. Scheduled for surgery in the morning. She is on no blood thinners. Medically appears to be stable at this time. Femoral neck fracture, fall. Surgery is going to be done tomorrow. Hypothyroidism. N.p.o. after midnight. Second EKG, but she is cleared for surgery at this point. MMODL / IJN: [id number] /
[2023-04-24] MEDS: LACTATED RINGERS 1,000 ML IV ONE ×2 (07:55→11:01)
[2023-04-24] MEDS ORDERED: ONDANSETRON 4 MG/2 ML VIAL IVP ONE (08:02)
[2023-04-24] MEDS ORDERED: DEXAMETHASONE SOD PHOSPHATE 4 MG/ML 1 ML VIAL IVP ONE (08:02)
[2023-04-24] MEDS ORDERED: LACTATED RINGERS 1,000 ML IV ONE ×2 (08:10→09:18)
[2023-04-24] MEDS ORDERED: SODIUM CHLORIDE 0.9% 100 ML with ceFAZolin 2,000 MG IV ONE ×2 (08:38)
[2023-04-24] MEDS ORDERED: ONDANSETRON 4 MG/2 ML VIAL IVP PRN (08:40)
[2023-04-24] MEDS ORDERED: NALOXONE 0.4 MG/ML 1 ML VIAL IV PRN (08:40)
[2023-04-24] MEDS ORDERED: MAGNESIUM HYDROXIDE 2,400 MG/30 ML CUP PO PRN (08:40)
[2023-04-24] MEDS ORDERED: HYDROmorphone 0.5 MG/0.5 ML SYRINGE IVP PRN ×2 (08:40)
[2023-04-24] MEDS ORDERED: HYDROcodone/APAP 7.5-325MG 1 EACH TAB PO PRN (08:45)
[2023-04-24] MEDS ORDERED: NON FORMULARY DRUG (Fluoride (Sodium) [Sodium Fluoride 5000 Plus] 51 GM Cream..G.) DENTAL SCH (09:00)
--- NOTE | 2023-04-24 09:57 | XR ---
Intraoperative/procedural fluoroscopic services were provided for right hip pinning. Total fluoroscop y time is 1.29 minutes with a total of 3 submitted images to PACS. Total DAP 11.482 Gycm2. Please se e the operative note for further details.
--- NOTE | 2023-04-24 10:23 | OP ---
OPERATIVE REPORT DATE OF SERVICE : 04/24/2023 ANESTHESIA: Spinal sedation. PREOPERATIVE DIAGNOSIS: Right nondisplaced valgus impacted femoral neck fracture. POSTOPERATIVE DIAGNOSIS: Right nondisplaced valgus impacted femoral neck fracture. PROCEDURE PERFORMED: Closed reduction, percutaneous screw fixation for right femoral neck fracture. ESTIMATED BLOOD LOSS: 25 mL. TOURNIQUET: None. DRAINS: None. COMPLICATIONS: None apparent. DISPOSITION: Postanesthesia care unit. INDICATIONS: Yamila is a very pleasant 68-year-old female who fell going up her stairs yesterday. She was brought to [facility] via ambulance. Workup including x-rays revealed a valgus impacted minimally displaced femoral neck fracture. She is a fairly healthy household ambulator. Recommendation was for a closed reduction and percutaneous screw fixation for her fracture. The risks of procedure were discussed with her and her in detail. These risks included but were not limited to risk of infection, nerve damage, bleeding, pain, and a small risk of deep vein thrombosis which could lead to fatal pulmonary embolism. Further risks include failure of the fracture to heal and a small possibility for avascular necrosis of the femoral head. All of Yamila's questions with regard to the risks of procedure were answered to her satisfaction. Appropriate informed consent was obtained. DESCRIPTION OF PROCEDURE: The patient was identified in the preoperative holding area. Surgical site was marked by both patient and myself. She was given 2 g of Ancef IV for prophylactic purposes. She was then transported to the operative suite. She was placed supine on the operating room table. Spinal anesthetic was then administered and dosed per the Anesthesia Department without apparent complication. She was then placed onto the [place] fracture table well-padded in preparation for surgery. Fluoroscopy was brought in to ensure that I had adequate views and that the fracture remained nondisplaced. When I was satisfied, we proceeded. The patient's right lower extremity was then prepped and draped in usual sterile fashion. Standard surgical pause was undertaken to ensure that we were operating the correct site and that appropriate preoperative antibiotics had been given. All staff in room were in agreement, and we proceeded. The fluoroscopy was then brought in. I then utilized a pin placed over the inferior aspect of the femoral neck. This helped me to plan my incision. A small 3-4 cm incision was then made on the lateral thigh directly over the proximal femur. Dissection was carried down sharply through the tensor fascia. I started with placing the inferior pin first. This was placed centrally in the neck and in the femoral head along the inferior aspect of the femoral neck. This was done utilizing fluoroscopy to place the pin. I then proceeded to place the anterosuperior and posterosuperior pins. Again, these were placed under fluoroscopic guidance. There was an excellent spread. The anterior pin was up against the anterior cortex of the femoral neck and the posterior pin was up against the cortex of the posterior femoral neck. Both pins were placed deep into the center of the femoral head. I then proceeded with placement of our partially-threaded screws. These were Jordana 7.0 mm partially-threaded cannulated screws. I did utilize a washer as well. The screws were then placed over the pins. These were self-drilling self-tapping screws. Again, fluoroscopy was utilized for its placement. These were placed across the fractures. All of the threads were across the fracture site, and the screws were deep into the femoral head. She had very good bone quality and all 3 screws had excellent purchase in bone. Final AP and lateral fluoroscopic images were taken. All 3 screws had excellent spread. All of the threads were across the fracture site, and the washers were flush against the lateral cortex of the femur. At this point in time, no further work was deemed necessary. The wound was then thoroughly irrigated with sterile saline solution with antibiotic added. The tensor fascia was then closed with 0 Vicryl interrupted suture. The subcutaneous tissue was closed with 2-0 Vicryl interrupted suture and the skin was closed with stainless steel theodore. Sterile compressive dressing was then applied. All sponge and needle counts were deemed correct prior to closure. The patient tolerated the procedure without apparent complication. She was transferred to recovery room in stable condition. MMODL / IJN: [id number] /
[2023-04-24] MEDS: NON FORMULARY DRUG (Dextroamphetamine/Amphetamine [Adderall] 20 MG Tablet) PO SCH ×2 (11:05→19:46)
[2023-04-24] MEDS: ASPIRIN 325 MG TAB PO SCH ×2 (11:05→21:29)
[2023-04-24] MEDS: SODIUM CHLORIDE 0.9% 1,000 ML IV SCH (11:07)
--- NOTE | 2023-04-24 11:29 | XR ---
EXAMINATION TYPE: XR Hip Limited RT DATE OF EXAM: 04/24/2023 11:11 AM INDICATION: Patient age:Female; 68 years old; Reason for study: Status post hip surgery, assess surgical alignment; PH. COMPARISON: Right hip radiograph 04/23/2023 TECHNIQUE: The right hip was examined in the frontal projection. FINDINGS: Postsurgical changes with 3 screws traversing the femoral neck at site of previously seen f emoral neck fracture. Hardware appears intact with normal alignment. There is associated soft tissue gas and edema with skin theodore. No new fractures identified. No dislocation. IMPRESSION: Post surgical fixation changes of the right proximal femoral neck. Hardware appears intact with appro priate alignment.
[2023-04-24] MEDS: HYDROcodone/APAP 7.5-325MG 1 EACH TAB PO PRN ×2 (12:22→20:33)
[2023-04-24] MEDS ORDERED: SENNOSIDES-DOCUSATE SODIUM 1 EACH TAB PO SCH (21:00)
[2023-04-24] MEDS: ALPRAZolam 0.5 MG TAB PO PRN (21:31)
--- NOTE | 2023-04-25 00:59 | PN ---
PROGRESS NOTE SUBJECTIVE: Status post hip surgery. She has been up ambulating. She is going to go home tomorrow. No chest pain or shortness of breath. Minimal pain. Saturating is 92% on room air. OBJECTIVE: VITAL SIGNS: Blood pressure is 92 to 130s over 50s to 60s, temperature 98.5. CARDIOVASCULAR: . HEMATOLOGY: Negative Homans. ASSESSMENT AND PLAN: Status post hip surgery, history of nicotine addiction. Urine is possibly positive for UTI continue current rehab . Prognosis guarded. MMODL / IJN: [id number] /
[2023-04-25] MEDS: SODIUM CHLORIDE 0.9% 1,000 ML IV SCH (02:36)
[2023-04-25] MEDS: LEVOTHYROXINE 75 MCG TAB PO SCH (05:46)
[2023-04-25] MEDS: HYDROcodone/APAP 7.5-325MG 1 EACH TAB PO PRN ×2 (06:34→12:53)
[2023-04-25 08:29] LABS: Basophils % (A) 0 %; Eosinophils % (A) 0 %; HGB 12.1 gm/dL (11.4-16.0); Lymphocytes # (A) 1.4 k/uL (1.0-4.8); Lymphocytes % (A) 16 %; MCH 31.1 pg (25.0-35.0); MCHC 32.8 g/dL (31.0-37.0); MCV 94.6 fL (80.0-100.0); Monocytes # (A) 0.6 k/uL (0-1.0); Monocytes % (A) 8 %; Neutrophils # (A) 6.2 k/uL (1.3-7.7); Neutrophils % (A) 73 %; Platelet Count 178 k/uL (150-450); RBC 3.91 m/uL (3.80-5.40); RDW 12.5 % (11.5-15.5); WBC 8.4 k/uL (3.8-10.6)
[2023-04-25] MEDS: ASPIRIN 325 MG TAB PO SCH (08:37)
[2023-04-25] MEDS: NON FORMULARY DRUG (Dextroamphetamine/Amphetamine [Adderall] 20 MG Tablet) PO SCH (08:39)
--- NOTE | 2023-04-25 12:11 | P.DS ---
Providers Date of admission: 04/23/23 10:07 Expected date of discharge: 04/25/23 Attending physician: Kerwin Zimmerman Consults: 04/23/23 10:06 Consult Physician Urgent Consulting Provider: Nicolas Bauman Reason/Comments: Medical management, surgical clearance Do you want consulting provider notified?: Yes Primary care physician: Nicolas Bauman - Discharge Diagnosis(es) (1) Fall Current Visit: Yes Status: Acute (2) Fracture of femoral neck, right Current Visit: Yes Status: Acute Hospital Course: This is an 68-year-old female who sustained a fracture of her right hip after a fall home on 04/23/2023. The patient presented for evaluation in the emergency room. After discussion and consideration patient elects to proceed with closed reduction and percutaneous screw fixation for right femoral neck fracture. The patient is seen preoperatively by Dr. Zimmerman and medically cleared for surgery by internal medicine. Patient is admitted to [facility] on 04/23/2023 and closed reduction and percutaneous screw fixation for right femoral neck fracture is performed on 04/24/2023. The procedure is performed without complication or sequelae. The patient is doing well postoperatively. Labs and vital signs are stable on day of discharge. On day of discharge patient's hip incision is healing well. There is minimal erythema. There is no drainage noted at this time. There is minimal soft tissue swelling to the hip and thigh. Patient has full foot and ankle motion without difficulty or pain. Calf is soft and nontender to palpation. Neurovascular status to the right lower extremity is intact. Patient is discharged home in good condition. Please see med rec for accurate list of home medications. Patient Condition at Discharge: Fair Plan - Discharge Summary Discharge Rx Participant: Yes New Discharge Prescriptions: New Aspirin 325 mg PO BID #60 tab HYDROcodone/APAP 7.5-325MG [[place] 7.5-325] 1 - 2 tab PO Q6H PRN #32 tab PRN Reason: Pain Sennosides [Senokot] 2 tab PO DAILY PRN #60 tablet PRN Reason: Constipation No Action ALPRAZolam [Xanax] 0.5 mg PO TID PRN PRN Reason: Anxiety Dextroamphetamine/Amphetamine [Adderall] 20 mg PO BID Levothyroxine Sodium [Synthroid] 75 mcg PO DAILY HYDROcodone/APAP 7.5-325MG [[place] 7.5-325] 1 tab PO Q6HR PRN PRN Reason: Pain Fluoride (Sodium) [Sodium Fluoride 5000 Plus] 1 applic DENTAL DAILY Discharge Medication List Dextroamphetamine/Amphetamine [Adderall] 20 mg PO BID 09/14/22 [History] HYDROcodone/APAP 7.5-325MG [[place] 7.5-325] 1 tab PO Q6HR PRN 09/14/22 [History] Levothyroxine Sodium [Synthroid] 75 mcg PO DAILY 09/14/22 [History] ALPRAZolam [Xanax] 0.5 mg PO TID PRN 04/23/23 [History] Fluoride (Sodium) [Sodium Fluoride 5000 Plus] 1 applic DENTAL DAILY 04/23/23 [History] Aspirin 325 mg PO BID #60 tab 04/24/23 [Rx] Sennosides [Senokot] 2 tab PO DAILY PRN #60 tablet 04/24/23 [Rx] HYDROcodone/APAP 7.5-325MG [[place] 7.5-325] 1 - 2 tab PO Q6H PRN #32 tab 04/25/23 [Rx] Follow up Appointment(s)/Referral(s): Nicolas Bauman MD [Primary Care Provider] - 1-2 days Christiano Dietrich DO [Doctor of Osteopathic Medicine] - 2 Weeks Activity/Diet/Wound Care/Special Instructions: Touch down weightbearing with walker. Leave dressing intact. Dressing may be removed by home care nurse or by patient in 7 days. Then change dressing twice daily until follow up. May shower with initial dressing intact and after removal. If dressing become saturated, please remove. Please take aspirin 325mg twice daily for 30 days to prevent blood clots. Recommend use of compression stockings daily until follow up to help prevent swelling and blood clots. May remove at night before sleeping. Please follow-up with [facility] in 2 weeks and call with any questions or concerns, . Discharge Disposition: HOME SELF-CARE
[2023-04-25 14:29] VITALS: BP 113/63; PULSE 68; RESP 15; TEMP 98.6
--- NOTE | 2023-04-27 11:56 | CDI ---
Documentation Clarification Form Date: 04/27/2023 11:45:09 AM From: Roxy Ibarra Phone: Admit Date: 04/23/2023 10:07:00 AM Patient Name: Yamila Prakash Visit Number: [id number] Discharge Date: 04/25/2023 02:51:00 PM ATTENTION: The Clinical Documentation Specialists (CDI) and [facility] Coding Staff appreciate your assistance in clarifying documentation. Please respond to the clarification below the line at the bottom and electronically sign. The CDI & [facility] Coding staff will review the response and follow-up if needed. Please note: Queries are made part of the Legal Health Record. If you have any questions, please contact the author of this message via ITS. Dr. Kerwin Zimmerman Per [employer] 04/24 Progress Note, UTI is documented. "Urine is possibly positive for UTI continue current rehab." Additional clarification regarding this diagnosis is requested. History/Risk Factors: Clinical Indicators: Vital Signs: 99 F, 72 bpm, 18, 137/66, 97%RA WBC: 6.5 -8.4 Urinalysis: Positive urine nitrate, Urine WBC 21, Occasional urine bacteria Urine Culture: No growth Treatment antibiotics Antibiotics Kefzol Please clarify if patient had a UTI or was it ruled out: [ ] UTI [ x ] UTI ruled out [ ] Other, please specify [ ] Unable to determine Present on Admission: [ ] Yes [ ] No MTDD
== END 2023-04-25 14:51 | disposition home or self-care (01) | DRG 482 ==
LOC: EC 09:08 → 4SSUR 10:07
PROVIDERS: ADMIT Orthopaedic Surgery Sports Medicine; ATTEND Orthopaedic Surgery Sports Medicine
PROC: 0QS634Z Reposition Right Upper Femur with Internal Fixation Device, Percutaneous Approach (ICD-10-PCS; principal; 2023-04-24 08:00)
DX: S72.001A Fracture of unspecified part of neck of right femur, initial encounter for closed fracture (principal); W10.8XXA Fall (on) (from) other stairs and steps, initial encounter; Y92.009 Unspecified place in unspecified non-institutional (private) residence as the place of occurrence of the external cause; Z28.310 Unvaccinated for COVID-19; F90.9 Attention-deficit hyperactivity disorder, unspecified type; F41.9 Anxiety disorder, unspecified; Z79.890 Hormone replacement therapy; Z79.899 Other long term (current) drug therapy; E03.9 Hypothyroidism, unspecified
CPT/HCPCS: 71045; 73501; 73502; 80053; 81001; 85025; 85610; 85730; 87086; 93005; 96372; 96374; 96376; 99285

== ENCOUNTER → 2023-09-07 | Outpatient (CLI) | payer MEDICARE ==
--- NOTE | 2023-09-07 16:31 | BD ---
EXAMINATION TYPE: Axial Bone Density DATE OF EXAM: 09/07/2023 CLINICAL HISTORY: 68 years old Female. ICD-10 CODE: Z78.0 ASYMPTOMATIC MENOPAUSAL Height: 63.5 in Weight: 142 lbs FRAX RISK QUESTIONS: History of Fracture in Adulthood: rt hip fx age 68 RISK FACTORS HISTORY OF: Hip Fracture (Right): yes age 68 Surgery to Hip(right): age 68 Active: yes Diet low in dairy products/other sources of calcium: yes Postmenopausal woman: age 55 MEDICATIONS: Thyroid Medications: yes Which medication: Levothyroxine How Lon+ years Additional Medications: calcium, vit d, EXAM MEASUREMENTS: Bone mineral densitometry was performed using the [employer] System. Bone mineral density as measured about the Lumbar spine is: ----- L1-L4(G/cm2): 0.705 T Score Values are as follows: ----- L1: -4.0 ----- L2: -4.1 ----- L3: -3.8 ----- L4: -4.0 ----- L1-L4: -4.0 Z Score Values are as follows: ----- L1: -2.4 ----- L2: -2.5 ----- L3: -2.1 ----- L4: -2.4 ----- L1-L4: -2.3 Bone mineral density baseline Bone mineral density about the L hip (g/cm2): 0.625 T Score values are as follows: -----L Neck: -3.1 -----L Total: -3.0 Z Score values are as follows: -----L Neck: -1.4 -----L Total: -1.7 Bone mineral density baseline FRAX%s: The graph provided illustrates a 29.1% chance for a major osteoporotic fx and a 9.6% chance f or the hips probability for fx in 10 years time. IMPRESSION: Osteoporosis (T Score less than -2.5). There is increased fracture risk and therapy is usually indicated based on age. Re-Screen 1-2 years. NOTE: T-SCORE=SD OF THE YOUNG ADULT MEAN.
--- NOTE | 2023-09-07 16:59 | MM ---
Reason for Exam: Screening (asymptomatic). Last mammogram was performed 1 year(s) and 1 month(s) ago. Patient History: Menarche at age 14. First Full-Term at age 19. Postmenopausal. 01/2010, Benign Excisional Biopsy on the left side. 12/23/2009, Benign Core Biopsy on the left side. Risk Values: [place] 5 year model risk: 1.7%. NCI Lifetime model risk: 5.5%. Prior Study Comparison: 08/07/2016 Bilateral Screening Mammogram, [facility]. 08/09/2017 Bilateral Screening Mammogram, [facility]. 09/01/2018 Bilateral Screening Mammogram, [facility]. 09/22/2019 Bilateral Screening Mammogram, [facility]. 08/11/2022 Bilateral MG 3D diag mammo w/cad [facility], [facility]. Tissue Density: The breast tissue is heterogeneously dense. This may lower the sensitivity of mammography. Findings: Analyzed By CAD. There appears symmetrical and stable. Benign calcification is within the right breast. There is an area of increased density in the subareolar right breast appears to be a subtle change from comparison. Additional workup with compression views are recommended. Left breast: No suspicious groups of microcalcifications, spiculated or lobular masses, architectural distortion or other secondary signs of malignancy are mammographically apparent. Overall Assessment: Incomplete: need additional imaging evaluation, BI-RAD 0 Management: Diagnostic Mammogram of the right breast. A negative mammogram report should not preclude additional follow up of suspicious palpable abnormalities. Patient should continue monthly self breast exam. A clinical breast exam by your physician is recommended on an annual basis and results should be correlated with mammographic findings. Electronically signed and approved by: Kodak Donohue D.O. Radiologis
== END | disposition home or self-care (01) ==
LOC: RADMAMWWP 08:45
PROVIDERS: ATTEND Family Medicine
DX: Z12.31 Encounter for screening mammogram for malignant neoplasm of breast (principal); M81.0 Age-related osteoporosis without current pathological fracture; Z78.0 Asymptomatic menopausal state
CPT/HCPCS: 77063; 77067; 77080

== ENCOUNTER → 2023-09-10 | Outpatient (CLI) | payer MEDICARE ==
--- NOTE | 2023-09-10 09:50 | MM ---
Reason for Exam: Additional evaluation requested from abnormal screening. Last screening mammogram was performed less than 1 month ago. Patient History: Menarche at age 14. First Full-Term at age 19. Postmenopausal. 01/2010, Benign Excisional Biopsy on the left side. 12/23/2009, Benign Core Biopsy on the left side. Risk Values: [place] 5 year model risk: 1.7%. NCI Lifetime model risk: 5.5%. Tissue Density: Right: The breast tissue is heterogeneously dense. This may lower the sensitivity of mammography. Findings: Analyzed By CAD. Under compression the asymmetric density appears to disperse normally. Mediolateral appears. No persistent suspicious spiculated or lobular mass evident. Overall Assessment: Probably benign, BI-RAD 3 Management: Diagnostic Mammogram of the right breast in 6 months. A negative mammogram report should not preclude additional follow up of suspicious palpable abnormalities. Patient should continue monthly self breast exam. A clinical breast exam by your physician is recommended on an annual basis and results should be correlated with mammographic findings. Electronically signed and approved by: Kodak Donohue D.O. Radiologis
== END | disposition home or self-care (01) ==
LOC: RADMAMWWP 09:14
PROVIDERS: ATTEND Family Medicine
DX: R92.331 Mammographic heterogeneous density, right breast (principal); Z78.0 Asymptomatic menopausal state
CPT/HCPCS: 77065; G0279; 77061

== ENCOUNTER → 2024-03-15 | Outpatient (CLI) | payer MEDICARE ==
--- NOTE | 2024-03-16 12:05 | MM ---
Reason for Exam: Follow-up at short interval from prior study. Last screening mammogram was performed 6 month(s) ago. Patient History: Menarche at age 14. First Full-Term at age 19. Postmenopausal. 01/2010, Benign Excisional Biopsy on the left side. 12/23/2009, Benign Core Biopsy on the left side. Risk Values: [place] 5 year model risk: 1.7%. NCI Lifetime model risk: 5.2%. Tissue Density: Right: There are scattered areas of fibroglandular density. Findings: Analyzed By CAD. Pattern appears stable. Persistent suspicious spiculated or lobular mass subareolar right breast is not evident. No suspicious groups of microcalcifications, spiculated or lobular masses, architectural distortion or other secondary signs of malignancy are mammographically apparent. Overall Assessment: Benign, BI-RAD 2 Management: Screening Mammogram of both breasts in 6 months. A negative mammogram report should not preclude additional follow up of suspicious palpable abnormalities. Patient should continue monthly self breast exam. A clinical breast exam by your physician is recommended on an annual basis and results should be correlated with mammographic findings. Note on Destini scores and lifetime risk: 1. A Destini score greater than 3% is considered moderate risk. If this is the case, consider specialist referral to assess eligibility for a risk reducing agent. 2. If overall lifetime risk for the development of breast cancer is 20% or higher, the patient may qualify for future screening with alternating mammogram and breast MRI. Electronically signed and approved by: Kodak Donohue D.O. Radiologis
== END | disposition home or self-care (01) ==
LOC: RADMAMWWP 08:08
PROVIDERS: ATTEND Family Medicine
DX: R92.321 Mammographic fibroglandular density, right breast (principal); R92.8 Other abnormal and inconclusive findings on diagnostic imaging of breast; Z78.0 Asymptomatic menopausal state
CPT/HCPCS: 77065; G0279; 77061

== ENCOUNTER → 2024-12-07 | Outpatient (CLI) | payer MEDICARE ==
--- NOTE | 2024-12-08 07:40 | MM ---
Reason for Exam: Screening (asymptomatic). Last mammogram was performed 1 year(s) and 3 month(s) ago. Patient History: Menarche at age 14. First Full-Term at age 19. Postmenopausal. 01/2010, Benign Excisional Biopsy on the left side. 12/23/2009, Benign Core Biopsy on the left side. Risk Values: [place] 5 year model risk: 1.7%. NCI Lifetime model risk: 5.2%. Prior Study Comparison: 09/07/2023 Bilateral MG 3D screening mammo w/cad, [facility]. 09/10/2023 Right MG 3D work up w/cad RT, [facility]. 03/15/2024 Right MG 3D diag mammo w/cad RT, [facility]. Tissue Density: The breasts are heterogeneously dense, which may obscure small masses. Findings: Analyzed By CAD. There is no suspicious group of microcalcifications or new suspicious mass in either breast. Overall Assessment: Negative, BI-RAD 1 Management: Screening Mammogram of both breasts in 1 year. . Patient should continue monthly self-breast exams. A clinical breast exam by your physician is recommended on an annual basis. This exam should not preclude additional follow-up of suspicious palpable abnormalities. Note on Destini scores and lifetime risk: 1. A Destini score greater than 3% is considered moderate risk. If this is the case, consider specialist referral to assess eligibility for a risk reducing agent. 2. If overall lifetime risk for the development of breast cancer is 20% or higher, the patient may qualify for future screening with alternating mammogram and breast MRI. [facility], , 12/08/2024 7:37 AM. Electronically signed and approved by: Néstor Pringle M.D. Radiologis
== END | disposition home or self-care (01) ==
LOC: RADMAMWWP 15:30
PROVIDERS: ATTEND Family Medicine
DX: Z12.31 Encounter for screening mammogram for malignant neoplasm of breast (principal); R92.333 Mammographic heterogeneous density, bilateral breasts; Z78.0 Asymptomatic menopausal state
CPT/HCPCS: 77063; 77067